=== PATIENT | female | born 1965 | race African-American/Black ===

== ENCOUNTER 2018-04-18 12:06 | Outpatient (CLI) | payer OTHER ==
--- NOTE | 2018-04-23 11:26 | MMO ---
SCREENING MAMMOGRAPHY: Date: 04-18-18 Comparison: 03-30-17, 03-01-16, 01-21-15 History: Screening mammography. FINDINGS: This study is interpreted with the assistance of computer aided detection. Scattered fibroglandular densities are present. The left breast is unremarkable. There are extensive calcifications noted throughout the right glandular tissue, unchanged since the exam. The breast tissue on the right is heterogeneously dense, which limits mammographic sensitiv ity. When compared to prior imaging, this density within the right breast has increased with a new ro und 2.8 cm mass suspected on CC imaging within the central aspect of the right breast, just lateral t o the nipple. IMPRESSION: 1. BIRADS 0 - incomplete. Further imaging assessment advised. 2. Increasws density noted within the right breast with a 2.8 cm new mass suspected centrally. Recomm end diagnostic mammography and focused breast ultrasound on the right. POS: SEDA
== END 2018-04-18 12:07 | disposition home or self-care (01) ==
LOC: SCSMAMMO 12:06
PROVIDERS: ATTEND Family Medicine
DX: Z12.31 Encounter for screening mammogram for malignant neoplasm of breast (principal); R92.8 Other abnormal and inconclusive findings on diagnostic imaging of breast
CPT/HCPCS: 77067

== ENCOUNTER 2018-05-07 14:21 | Outpatient (CLI) | payer OTHER | END 2018-05-07 14:22 | disposition home or self-care (01) | LOC: BICMAMMO 14:21 | PROVIDERS: ATTEND Family Medicine | DX: R92.8 Other abnormal and inconclusive findings on diagnostic imaging of breast (principal); N64.89 Other specified disorders of breast | CPT/HCPCS: G0279 ==

== ENCOUNTER → 2018-07-10 | Day surgery (SDC) | payer OTHER | LOC: BICULT 11:35 | PROVIDERS: ATTEND Radiology Diagnostic Radiology | PROC: 0HBT3ZX Excision of Right Breast, Percutaneous Approach, Diagnostic (ICD-10-PCS; principal; 2018-07-10) | DX: C50.511 Malignant neoplasm of lower-outer quadrant of right female breast (principal) | CPT/HCPCS: 19083; 88305; 88341; 88342 ==

== ENCOUNTER 2018-07-19 13:11 | Outpatient (CLI) | payer SELFPAY ==
[2018-07-19 14:06] LABS: #Eosinphils 0.1 thou/uL (0.0-0.7); #Lymphocytes 2.9 thou/uL (1.20-3.40); #Monocytes 0.4 thou/uL (0.11-0.59); #Neutrophils 4.5 thou/uL (1.40-6.50); %Basophils 0.3 % (0.0-1.0); %Eosinophils 1.6 % (0.0-10.0); %Lymphocytes 36.2 % (21.0-51.0); %Monocytes 5.6 % (0.0-10.0); %Neutrophils 56.4 % (42.0-75.0); Hemoglobin 13.3 g/dL (12.0-16.0); Mean Corpuscular HGB CONC 33.5 g/dL (32.0-36.0); Mean Corpuscular Hemoglobin 27.8 pg (27.0-31.0); Mean Corpuscular Volume 82.7 fL (78.0-98.0); Mean Platelet Volume 6.9 fL (7.4-10.4); Platelet Count 245 thou/uL (130-400); RBC Distribution Width 12.3 % (11.5-14.5); Red Blood Cell (RBC) Count 4.78 mill/uL (4.20-5.40); White Blood Cell (WBC) Count 7.9 thou/uL (4.8-10.8)
[2018-07-19 14:27] LABS: Anion Gap 13 mmol/L (10-20); BUN (Urea Nitrogen) 14 mg/dL (9.8-20.1); Calc. Creatinine Clearance 0 mL/min (70-130); Calcium 9.3 mg/dL (7.8-10.44); Carbon Dioxide 22 mmol/L (22-29); Chloride 108 mmol/L (98-107); Estimated GFR-MDRD 85; Glucose 105 mg/dL (70-105); Potassium 3.7 mmol/L (3.5-5.1); Sodium 139 mmol/L (136-145)
== END 2018-07-19 13:12 | disposition home or self-care (01) ==
LOC: LABBT 13:11
PROVIDERS: ATTEND Surgery
DX: Z01.812 Encounter for preprocedural laboratory examination (principal); C50.919 Malignant neoplasm of unspecified site of unspecified female breast
CPT/HCPCS: 80048; 85025

== ENCOUNTER 2018-07-25 06:52 | Inpatient (IN) | payer SELFPAY ==
[2018-07-25] MEDS ORDERED: CEFAZOLIN/Water 2 GM/20 ML SYRINGE ONE (09:40)
[2018-07-25] MEDS ORDERED: Famotidine/PF 20 mg/2ml Vial ONE (10:15)
[2018-07-25] MEDS ORDERED: Fentanyl 100 MCG/2 ML VIAL ONE (10:15)
[2018-07-25] MEDS ORDERED: Isosulfan Blue 50 MG/5 ML VIAL ONE (10:21)
[2018-07-25] MEDS ORDERED: Bupivacaine/Epinephrine 0.25% 30 ML VIAL ONE (11:13)
--- NOTE | 2018-07-25 11:15 | NM ---
RIGHT BREAST LYMPHOSCINTIGRAPHY: Date: 07/25/18 INDICATION: Right breast cancer. TECHNIQUE: Informed consent was obtained for the right breast lymphoscintigraphy. Site surrounding the right nip ple areolar complex was cleansed utilizing three separate local swabs. Four separate aliquots contain ing a total of 0.44 mCi of technetium-99m filtered subcutaneous was administered surrounding the righ t nipple areolar complex. The area was then massaged. The patient underwent planar imaging until iden tification of the first draining axillary lymph node was identified. Site was then marked. The patikevin t then was transferred to the preoperative suite for the patient's right breast procedure. IMPRESSION: Successful right breast lymphoscintigraphy. POS: SEDA
[2018-07-25] MEDS ORDERED: Promethazine HCl 25 MG/ML VIAL IM PRN ×2 (13:38→17:00)
[2018-07-25] MEDS ORDERED: Meperidine HCl/PF 25 MG/ML VIAL SLOW IVP PRN (13:38)
[2018-07-25] MEDS ORDERED: Ondansetron HCl/PF 4 MG/2 ML Vial IVP PRN (13:38)
[2018-07-25] MEDS ORDERED: Promethazine HCl 25 MG/ML VIAL SLOW IVP PRN (13:38)
[2018-07-25] MEDS ORDERED: Lidocaine 1% PF 5 ML VIAL ONE (14:36)
[2018-07-25] MEDS ORDERED: Ondansetron HCl/PF 4 MG/2 ML Vial ONE (14:36)
[2018-07-25] MEDS ORDERED: Dexamethasone 20 MG/5 ML VIAL ONE (14:36)
[2018-07-25] MEDS ORDERED: Ketorolac Tromethamine 30 MG/ML VIAL ONE (14:36)
[2018-07-25] MEDS ORDERED: Glycopyrrolate 0.2 MG/ML 5 ML SYRINGE ONE (14:36)
[2018-07-25] MEDS ORDERED: PROPOFOL 200 MG/20 ML VIAL ONE (14:36)
[2018-07-25 15:36] VITALS: BMI 32.9
[2018-07-25] MEDS ORDERED: HYDROcodone/Acetaminophen 5/325 mg Tablet PO PRN (16:03)
[2018-07-25] MEDS ORDERED: Ibuprofen 200 MG TAB PO PRN (16:04)
[2018-07-25] MEDS ORDERED: Acetaminophen 325 MG TAB PO PRN (16:04)
[2018-07-25] MEDS ORDERED: Ketorolac Tromethamine 30 MG/ML VIAL IVP PRN (16:06)
[2018-07-25] MEDS ORDERED: Ondansetron HCl/PF 4 MG/2 ML Vial SLOW IVP PRN (16:59)
[2018-07-26 10:02] LABS: #Lymphocytes 3.4 thou/uL (1.20-3.40); #Monocytes 0.9 thou/uL (0.11-0.59); %Basophils 0.3 % (0.0-1.0); %Eosinophils 0.3 % (0.0-10.0); %Lymphocytes 25.6 % (21.0-51.0); %Monocytes 6.3 % (0.0-10.0); %Neutrophils 67.5 % (42.0-75.0); Hemoglobin 11.1 g/dL (12.0-16.0); Mean Corpuscular HGB CONC 33.6 g/dL (32.0-36.0); Mean Corpuscular Hemoglobin 27.9 pg (27.0-31.0); Mean Corpuscular Volume 83.1 fL (78.0-98.0); Mean Platelet Volume 7.2 fL (7.4-10.4); Platelet Count 221 thou/uL (130-400); RBC Distribution Width 12.7 % (11.5-14.5); Red Blood Cell (RBC) Count 3.97 mill/uL (4.20-5.40); White Blood Cell (WBC) Count 13.4 thou/uL (4.8-10.8)
[2018-07-26 10:22] LABS: Anion Gap 11 mmol/L (10-20); BUN (Urea Nitrogen) 15 mg/dL (9.8-20.1); Calc. Creatinine Clearance 103 mL/min (70-130); Calcium 8.5 mg/dL (7.8-10.44); Carbon Dioxide 18 mmol/L (22-29); Chloride 110 mmol/L (98-107); Estimated GFR-MDRD 88; Glucose 110 mg/dL (70-105); Potassium 3.9 mmol/L (3.5-5.1); Sodium 135 mmol/L (136-145)
[2018-07-26] MEDS ORDERED: Lidocaine 1% PF 5 ML VIAL ONE (11:49)
[2018-07-26] MEDS ORDERED: Metoclopramide HCl 10 MG/2 ML VIAL ONE (11:49)
[2018-07-26] MEDS ORDERED: Glycopyrrolate 0.2 MG/ML 5 ML SYRINGE ONE (11:49)
[2018-07-26] MEDS ORDERED: Ondansetron HCl/PF 4 MG/2 ML Vial ONE (11:49)
[2018-07-26] MEDS ORDERED: diphenhydrAMINE 50 MG/ML VIAL ONE (11:49)
[2018-07-26] MEDS ORDERED: PHENYLEPHRINE-NS 100 MCG/ML 10 ML SYRINGE ONE (11:49)
[2018-07-26] MEDS ORDERED: PROPOFOL 200 MG/20 ML VIAL ONE (11:49)
[2018-07-26] MEDS ORDERED: Dexamethasone 20 MG/5 ML VIAL ONE (11:49)
[2018-07-26] MEDS ORDERED: CEFAZOLIN/Water 2 GM/20 ML SYRINGE SLOW IVP SCH (15:30)
[2018-07-26] MEDS ORDERED: CEFAZOLIN/Water 2 GM/20 ML SYRINGE ONE (16:49)
[2018-07-26] MEDS ORDERED: Fentanyl 100 MCG/2 ML VIAL ONE (16:54)
[2018-07-26] MEDS ORDERED: Midazolam HCl 2 mg/2 ml Vial ONE (17:11)
[2018-07-26] MEDS ORDERED: Promethazine HCl 25 MG/ML VIAL SLOW IVP PRN (18:51)
[2018-07-26] MEDS ORDERED: Promethazine HCl 25 MG/ML VIAL IM PRN (18:51)
[2018-07-26] MEDS ORDERED: HYDROmorphone 2 MG/ML VIAL SLOW IVP PRN (18:51)
[2018-07-26] MEDS ORDERED: Meperidine HCl/PF 25 MG/ML VIAL SLOW IVP PRN (18:51)
--- NOTE | 2018-07-26 23:16 | PDOC.GSPN ---
Surgery Progress Note: Subj - Subjective Narrative: Patient did well last night with very little JAIME output but this morning the JAIME output suddenly increased and was frankly bloody. The patient also had increased swelling in her upper chest above the Jesse wraps and her hematocrit dropped significantly from preoperatively. Recommendation was made to proceed urgently to the operating room for evacuation of hematoma which was done. No active ongoing bleeding was found but multiple small spots were cauterized and Klaudia was placed to aid with hemostasis. The patient is done well since her operation with only serosanguineous drainage of a moderate amount. We will continue to observe her closely for signs of bleeding. If she remains stable it is possible she will be discharged tomorrow. Surgery Progress Note: Obj - Vital signs Vital signs: Vital Signs - Most Recent Temp Pulse Resp BP Pulse Ox 97.4 F L 88 18 108/70 98 07/26/18 19:40 07/26/18 19:40 07/26/18 19:40 07/26/18 19:40 07/26/18 19:40 Surgery Progress Note: Results - Labs Result Diagrams: 07/26/18 09:54 07/26/18 09:54
[2018-07-27 05:11] LABS: Anion Gap 9 mmol/L (10-20); BUN (Urea Nitrogen) 11 mg/dL (9.8-20.1); Calc. Creatinine Clearance 123 mL/min (70-130); Calcium 8.1 mg/dL (7.8-10.44); Carbon Dioxide 22 mmol/L (22-29); Chloride 110 mmol/L (98-107); Estimated GFR-MDRD Greater than 90; Glucose 114 mg/dL (70-105); Potassium 4.1 mmol/L (3.5-5.1); Sodium 137 mmol/L (136-145)
[2018-07-27 05:56] LABS: #Monocytes 0.6 thou/uL (0.11-0.59); #Neutrophils 6.1 thou/uL (1.40-6.50); %Basophils 0.2 % (0.0-1.0); %Lymphocytes 23.3 % (21.0-51.0); %Monocytes 6.6 % (0.0-10.0); %Neutrophils 69.9 % (42.0-75.0); Hemoglobin 7.9 g/dL (12.0-16.0); Mean Corpuscular HGB CONC 33.7 g/dL (32.0-36.0); Mean Corpuscular Hemoglobin 28.1 pg (27.0-31.0); Mean Corpuscular Volume 83.4 fL (78.0-98.0); Mean Platelet Volume 7.5 fL (7.4-10.4); Platelet Count 189 thou/uL (130-400); RBC Distribution Width 12.6 % (11.5-14.5); Red Blood Cell (RBC) Count 2.82 mill/uL (4.20-5.40); White Blood Cell (WBC) Count 8.8 thou/uL (4.8-10.8)
[2018-07-27 11:14] VITALS: BP 110/67; TEMP 98.5
--- NOTE | 2018-07-30 15:38 | OP ---
DATE OF SURGERY: 07/26/2018 PROCEDURES: Wound exploration and evacuation of hematoma from right mastectomy. HISTORY: Ms. Puentes is a 53-year-old woman who underwent right mastectomy and sentinel lymph node biop sy on 07/25/2018. Postoperatively, she initially did well with minimal output from her JAIME drain, but on the morning of postoperative day #1, her nurse noted significant increase in bloody drainage from the JAIME drain and the patient experienced increased swelling and pain at her mastectomy site. She wa s found to have a newly developed hematoma at the right mastectomy site and recommendation was made t o proceed to the operating room for evacuation and control of bleeding. PROCEDURE IN DETAIL: After informed consent was obtained and appropriate preoperative antibiotics ad ministered, the patient was taken to the operating room where she was placed in supine position and g eneral anesthesia was administered. She was prepped and draped in standard sterile fashion and the r ight mastectomy incision opened. A large amount of clot was evacuated from the wound. There were a few small oozing points from the pectoralis muscle, which were controlled with electrocautery, but no significant bleeding source was found. The wound was copiously irrigated and examined for a period of time and no additional bleeding was seen. The deep dermal and subcutaneous tissues were reapproxi mated with [id number] 3-0 Vicryl sutures, and the skin was closed with skin melissa. Xeroform a nd gauze dressing was placed and secured with a Tegaderm. The JAIME exit site was also dressed and secu red with gauze and Tegaderm. A flush dressing was then placed to the chest wall and secured with an Jesse wrap. The patient was extubated and taken to recovery in good condition. Estimated blood loss w as minimal, although a large amount of clot was evacuated from the wound. There were no complication s. There were no specimens.
--- NOTE | 2018-07-30 15:38 | OP ---
DATE OF PROCEDURE: 07/25/2018 PROCEDURES: Right mastectomy and sentinel lymph node biopsy. PREOPERATIVE DIAGNOSIS: Right breast cancer. POSTOPERATIVE DIAGNOSIS: Right breast cancer. HISTORY: Ms. Puentes is a 53-year-old woman recently diagnosed with right breast cancer on core needle biopsy. She has a clinically negative axilla and a 1.8 cm mass for a clinical stage of T1 N0 M0 and she chose mastectomy as her treatment of choice due to a history of multiple callbacks for possible a bnormalities in that breast in the past. In the past, she does not wish to proceed with the close garcia rveillance, which will be necessary with breast conservation. PROCEDURE IN DETAIL: After informed consent was obtained and appropriate preoperative antibiotics ad ministered, the patient was taken to the operating room and placed in supine position. General anest hesia was administered. The skin at the nipple and areola were cleaned with alcohol and Lymphazurin injected and the breast massaged for five minutes. The patient was then prepped and draped in a ramsey dard sterile fashion and sentinel lymph node biopsy performed. An incision was made along the lower edge of the hair-bearing skin and dissection carried down to the area of highest activity. A blue ly mph node was encountered and resected clipping the small lymphatics as they were encountered. This h ad a specimen count of 1351. The axilla was surveyed and another area of increased activity was iden tified. A second slightly blue lymph node was identified and had a specimen count of 672. On examin ation of the axilla, a third area of increased activity was identified and a third slightly blue lymp h node dissected free. This had a specimen count of 3535. These were sent as sentinel lymph nodes # 1, 2, and 3 respectively. On careful examination of the axilla, no other areas of increased activity were identified and there were no palpable abnormal lymph nodes. The wound was irrigated and hemost asis verified. The subcutaneous tissues were reapproximated with 3-0 Monocryl suture and the skin wa s closed with 4-0 subcuticular Monocryl suture. Dermabond was placed and attention turned to the rig ht mastectomy. A transverse elliptical incision was made and skin flaps raised medially and superior ly to the level of the sternal edge and the clavicle and inferiorly to the level of the rectus sheath . The breast and the underlying pectoralis fascia were then elevated and dissected free off of the u nderlying pectoralis muscle using PlasmaBlade. The breast tissue and fatty tissue were tapered off l ateral to the pectoralis muscle to avoid entering into the true axilla, but some of the subcutaneous fat in this area was excised to make the transition smoother. The specimen was marked with a long la teral and short superior suture and the wound copiously irrigated. Multiple small oozing sites on th e flaps and the pectoralis muscle were controlled with electrocautery. Once pristine hemostasis was obtained, a JAIME drain was placed laterally and secured to the skin. This was placed inferiorly in the flap with the end curling up under the superior flap. The deep dermal tissues were reapproximated w ith interrupted 3-0 Vicryl sutures, and the skin was closed with a running subcuticular Monocryl sutu re. Dermabond dressings were placed and a flush dressing placed and secured with an Jesse wrap. The p atient was extubated and taken to recovery in good condition. Estimated blood loss was minimal. The re were no complications. SPECIMENS: Right breast and sentinel lymph nodes x3.
== END 2018-07-27 14:11 | disposition home or self-care (01) | DRG 580 ==
LOC: SDC 06:52 → SURG A 14:08
PROVIDERS: ADMIT Surgery; ATTEND Surgery
PROC: 0HBT0ZZ Excision of Right Breast, Open Approach (ICD-10-PCS; 2018-07-25)
PROC: 07B50ZX Excision of Right Axillary Lymphatic, Open Approach, Diagnostic (ICD-10-PCS; 2018-07-25)
PROC: 0W380ZZ Control Bleeding in Chest Wall, Open Approach (ICD-10-PCS; principal; 2018-07-26)
PROC: 0HC5XZZ Extirpation of Matter from Chest Skin, External Approach (ICD-10-PCS; 2018-07-26)
DX: C50.911 Malignant neoplasm of unspecified site of right female breast (principal); L76.32 Postprocedural hematoma of skin and subcutaneous tissue following other procedure; Z17.0 Estrogen receptor positive status [ER+]
CPT/HCPCS: 36415; 78195; 80048; 85025; 88307; 88309; 88342; A9541; G8987-GO-CI; G8988-GO-CI; G8989-GO-CI; J0131; J1100; J1200; J1885; J2001; J2250; J2405; J2704; J2765; J3010; Q9968; S0028

== ENCOUNTER 2018-09-12 08:00 | Day surgery (SDC) | payer SELFPAY ==
[2018-09-11 13:32] VITALS: BMI 34.0
[2018-09-12] MEDS ORDERED: CEFAZOLIN/Water 2 GM/20 ML SYRINGE ONE (08:27)
[2018-09-12] MEDS ORDERED: Bupivacaine/Epinephrine 0.25% 30 ML VIAL ONE (09:19)
[2018-09-12] MEDS ORDERED: Fentanyl 100 MCG/2 ML VIAL ONE ×2 (10:01→13:30)
[2018-09-12] MEDS ORDERED: Ondansetron PF 4 MG/2 ML Vial ONE (11:52)
[2018-09-12] MEDS ORDERED: PROPOFOL 200 MG/20 ML VIAL ONE (11:52)
[2018-09-12] MEDS ORDERED: Lidocaine 1% PF 5 ML VIAL ONE (11:52)
[2018-09-12] MEDS ORDERED: HYDROcodone/Acetaminophen 5/325 mg Tablet ONE (14:33)
--- NOTE | 2018-09-16 12:40 | PDOC.OP ---
Operative Note - Operative Note Operative Note: PROCEDURE: Drainage, debridement and imbrication of right mastectomy site seroma. DATE OF PROCEDURE: 09/12/2018 SURGEON: Samanta Snider M.D. PREOPERATIVE DIAGNOSES: Seroma right mastectomy site POSTOPERATIVE DIAGNOSIS: Seroma right mastectomy site HISTORY: Patient is status post sentinel lymph node biopsy and right mastectomy for breast cancer. She had postoperative bleeding requiring take back for washout on postoperative day one, and developed a seroma after removal of her drain. A seroma catheter was placed at the seroma recurred after this was removed. Recommendation was made to proceed to the operating room for treatment of the seroma. PROCEDURE IN DETAIL: After informed consent was obtained and appropriate preoperative antibiotics were administered the patient was taken to the operating room where she was placed in the supine position and anesthesia was administered. She was prepped and draped in a standard sterile fashion and local anesthesia infused to the skin and subcutaneous tissues at her right mastectomy site. The incision was reentered centrally and a large seroma cavity encountered involving almost the entire mastectomy site. The seroma fluid was straw-colored and clear and there is no evidence of infection. The surface of the seroma cavity was chronic and serosalized in nature. The entire surface of the capsule was physically debrided with an abrasive pad and then crosshatched with electrocautery. Starting at the edges of the seroma cavity a running Vicryl via lock suture was used to imbricate the seroma bringing the overlying tissues together. A JAIME drain was placed inferiorly and brought out lateral to the incision and secured to the skin. The subcutaneous tissues were reapproximated with interrupted [id number] Vicryl sutures and the skin was closed with a running 4-0 subcuticular Monocryl suture. The JAIME was placed to bulb drainage. Dermabond dressings were placed and once this was dry a fluffs and Jesse wrap dressing was placed. Estimated blood loss was minimal. There were no complications. There were no specimens.
--- NOTE | 2018-09-20 05:40 | PQF ---
[facility] POST DISCHARGE CLINICAL DOCUMENTATION IMPROVEMENT CLARIFICATION FORM l Todays Date: 09/17/18 l Patients Name SHAGGY MCRAE l l Admit Date 09/12/18 l Disch Date 09/12/18 Foreign Diplomat Name Raj Kwon Email: [email or web address] Cell: [phone] Present Clinical Indicators - Signs / Symptoms Results and Location in Medical Record [ ] Documentation of: [ ] [ ] Documentation of: [ ] [ ] Documentation of: [ ] [ ] Documentation of: [ ] [ ] Risks [ ] [ ] [ ] Treatment [ ] POSTOPERATIVE SEROMA OF BREAST QUERY FOR AREA (SQ CM) OF DEBRIDEMENT [ ] [ ] To be completed by Physician: DR. DAX KAY The documentation in this patients record requires clarification to ensure coding compliance and accuracy. Check the appropriate box and include in your discharge summary. [ ] [ ] [ ] [ ] Please check this box if this does not apply to this patient [ ] Unable to determine [ ] Other diagnosis: Review the following information and exercise your independent professional judgment in responding to the clarification. Based upon the clinical findings, risk factors, and treatment, please clarify if you are treating one of the above probable or suspected diagnoses. Physician Signature: Date Time MTDD
== END 2018-09-12 15:25 | disposition home or self-care (01) ==
LOC: SDC 08:00
PROVIDERS: ATTEND Surgery
PROC: 0JB60ZZ Excision of Chest Subcutaneous Tissue and Fascia, Open Approach (ICD-10-PCS; principal; 2018-09-12)
DX: M96.843 Postprocedural seroma of a musculoskeletal structure following other procedure (principal); Z85.3 Personal history of malignant neoplasm of breast; Z90.11 Acquired absence of right breast and nipple
CPT/HCPCS: 96374; J2001; J2405; J2704; J3010

== ENCOUNTER 2019-04-29 08:46 | Outpatient (CLI) | payer OTHER ==
--- NOTE | 2019-04-29 09:35 | MMO ---
Left Breast MAMMO Unilat Diag DDI LT+DUSTY. CLINICAL HISTORY: Patient is 53 years old and is seen for diagnostic exam. The patient has no family history of breast cancer. The patient has no personal history of cancer. The patient has a history of right Ultrasound Guided Core Biopsy in June, - malignant and right Mastectomy in June, - malignant. VIEWS: The views performed were: bilateral craniocaudal with tomosynthesis; bilateral mediolateral oblique with tomosynthesis; and bilateral mediolateral. FILMS COMPARED: The present examination has been compared to prior imaging studies performed at [facility] on 03/01/2016, 03/30/2017, 04/18/2018 and 05/07/2018. MAMMOGRAM FINDINGS: There are scattered fibroglandular densities. There are stable benign appearing calcifications seen in the left breast. There are no suspicious masses, suspicious calcifications, or new areas of architectural distortion. IMPRESSION: THERE IS NO MAMMOGRAPHIC EVIDENCE OF MALIGNANCY. A ROUTINE FOLLOW-UP MAMMOGRAM IN 1 YEAR IS RECOMMENDED. THE RESULTS OF THIS EXAM WERE SENT TO THE PATIENT. ACR BI-RADS Category 2 - Benign finding MAMMOGRAPHY NOTE: 1. A negative mammogram report should not delay a biopsy if a dominant of clinically suspicious mass is present. 2. Approximately 10% to 15% of breast cancers are not detected by mammography. 3. Adenosis and dense breasts may obscure an underlying neoplasm.
== END 2019-04-29 08:47 | disposition home or self-care (01) ==
LOC: BICMAMMO 08:46
PROVIDERS: ATTEND Surgery
DX: C50.919 Malignant neoplasm of unspecified site of unspecified female breast (principal); Z90.11 Acquired absence of right breast and nipple
CPT/HCPCS: G0279

== ENCOUNTER 2020-05-03 14:29 | Outpatient (CLI) | payer OTHER ==
--- NOTE | 2020-05-03 15:25 | MMO ---
Left Breast MAMMO Unilat Diag DDI LT+DUSTY. CLINICAL HISTORY: Patient is 54 years old and is seen for diagnostic exam. The patient has no family history of breast cancer. The patient has a history of malignant (generic) in 2018. The patient has a history of right Ultrasound Guided Core Biopsy in June, - malignant and right Mastectomy in June, - malignant. VIEWS: The views performed were: left craniocaudal with tomosynthesis; left mediolateral oblique with tomosynthesis; and left mediolateral with tomosynthesis. FILMS COMPARED: The present examination has been compared to prior imaging studies performed at [facility] on 03/30/2017, 04/18/2018, 05/07/2018 and 04/29/2019. This study has been interpreted with the assistance of computer-aided detection. MAMMOGRAM FINDINGS: There are scattered fibroglandular densities. There are no suspicious masses, suspicious calcifications, or new areas of architectural distortion. IMPRESSION: THERE IS NO MAMMOGRAPHIC EVIDENCE OF MALIGNANCY. A ROUTINE FOLLOW-UP MAMMOGRAM IN 1 YEAR IS RECOMMENDED. THE RESULTS OF THIS EXAM WERE SENT TO THE PATIENT. ACR BI-RADS Category 1 - Negative MAMMOGRAPHY NOTE: 1. A negative mammogram report should not delay a biopsy if a dominant of clinically suspicious mass is present. 2. Approximately 10% to 15% of breast cancers are not detected by mammography. 3. Adenosis and dense breasts may obscure an underlying neoplasm. Reported by: FAYE SOLER MD Electonically Signed: [id number]
== END 2020-05-03 14:30 | disposition home or self-care (01) ==
LOC: BICMAMMO 14:29
PROVIDERS: ATTEND Family Medicine
DX: C50.911 Malignant neoplasm of unspecified site of right female breast (principal)
CPT/HCPCS: G0279

== ENCOUNTER 2021-05-03 14:40 | Outpatient (CLI) | payer OTHER | END 2021-05-03 14:41 | disposition home or self-care (01) | LOC: BICMAMMO 14:40 | PROVIDERS: ATTEND Surgery | DX: Z08 Encounter for follow-up examination after completed treatment for malignant neoplasm (principal); Z85.3 Personal history of malignant neoplasm of breast | CPT/HCPCS: G0279 ==

== ENCOUNTER 2022-05-04 13:44 | Outpatient (CLI) | payer OTHER | END 2022-05-04 13:45 | disposition home or self-care (01) | LOC: BICMAMMO 13:44 | PROVIDERS: ATTEND Surgery | DX: Z08 Encounter for follow-up examination after completed treatment for malignant neoplasm (principal); Z85.3 Personal history of malignant neoplasm of breast | CPT/HCPCS: G0279 ==

== ENCOUNTER 2024-05-05 10:45 | Outpatient (CLI) | payer BC | END 2024-05-05 10:46 | disposition home or self-care (01) | LOC: BICMAMMO 10:45 | PROVIDERS: ATTEND Internal Medicine Hematology & Oncology | DX: Z12.31 Encounter for screening mammogram for malignant neoplasm of breast (principal) | CPT/HCPCS: 77063; 77067 ==